=== PATIENT | male | born 1985 | race African-American/Black ===

== ENCOUNTER 2017-12-12 07:22 | Emergency (ER) | payer SELFPAY ==
[~2017-12-12] VITALS: Ht 180.3 cm; Wt 102.0 kg
[2017-12-12] MEDS ORDERED: ALBUTEROL (0.083%) 2.5MG/3ML NEB HHN STA (07:49)
[2017-12-12] MEDS ORDERED: IPRATROPIUM BROMIDE (0.02%) 0.5MG/2.5ML NEB HHN STA (07:49)
[2017-12-12] MEDS ORDERED: PREDNISONE 20MG TABLET PO STA (07:49)
[2017-12-12] MEDS ORDERED: ALBUTEROL (0.5%) 2.5MG/0.5ML NEB HHN ONE (08:05)
[2017-12-12 10:32] VITALS: BP 124/82
== END 2017-12-12 10:34 | disposition home or self-care (01) ==
LOC: ER 08:18
DX: J45.901 Unspecified asthma with (acute) exacerbation (principal); K21.9 Gastro-esophageal reflux disease without esophagitis; F12.10 Cannabis abuse, uncomplicated; Z91.048 Other nonmedicinal substance allergy status
CPT/HCPCS: 71045; 93005; 94644; 99285; J7512; J7611

== ENCOUNTER 2018-05-09 05:29 | Emergency (ER) | payer OTHER ==
[~2018-05-09] VITALS: Ht 180.3 cm; Wt 102.0 kg
[2018-05-09] MEDS ORDERED: KETOROLAC 30MG/ML VIAL IV STA (06:36)
[2018-05-09] MEDS ORDERED: ACETAMINOPHEN 325MG TABLET PO STA (06:36)
[2018-05-09] MEDS ORDERED: SODIUM CHLORIDE 0.9% 1,000 ML IV ONE ×2 (06:45)
[2018-05-09 07:20] LABS: BASOPHILS % 1.6 % (0.0-2.0); EOSINOPHILS % 2.5 % (0.0-5.0); HEMOGLOBIN. 14.1 g/dL (14.0-18.0); LYMPHOCYTES % 41.4 % (20.0-50.0); MEAN CORPUSCULAR HEMOGLOBIN 27.4 pg (28.0-32.0); MEAN CORPUSCULAR VOLUME 81.8 fL (80.0-94.0); MEAN PLATELET VOLUME 8.1 fl (7.4-10.4); MONOCYTES % 13.7 % (2.0-8.0); NEUTROPHILS % 40.8 % (40.0-76.0); PLATELET 252 x1000/uL (130-400); RED BLOOD CELL COUNT 5.14 mill/uL (4.7-6.1); RED CELL DISTRIBUTION WIDTH 14.2 % (11.6-14.6)
[2018-05-09 07:26] LABS: CHLORIDE 108 mEq/L (98-107)
[2018-05-09 07:28] LABS: INR 1.1; PROTHROMBIN TIME 10.7 sec (9.1-11.1)
[2018-05-09] MEDS ORDERED: IPRATROPIUM BROMIDE (0.02%) 0.5MG/2.5ML NEB HHN STA (07:59)
[2018-05-09] MEDS ORDERED: ALBUTEROL (0.083%) 2.5MG/3ML NEB HHN STA (07:59)
[2018-05-09 10:11] VITALS: BP 132/70
== END 2018-05-09 10:17 | disposition home or self-care (01) ==
LOC: ER 05:29 → EDBEDREQTM 06:58 → CANBEDREQ 09:59 → ER 10:17
DX: J06.9 Acute upper respiratory infection, unspecified (principal); J45.901 Unspecified asthma with (acute) exacerbation; R00.1 Bradycardia, unspecified; R74.0 Nonspecific elevation of levels of transaminase and lactic acid dehydrogenase [LDH]; R19.7 Diarrhea, unspecified
CPT/HCPCS: 36415; 71045; 80053; 83605; 84145; 85025; 85610; 87040; 87804; 93005; 94644; 96361; 96374; 99285; J1885; J7030; 94640; J7611

== ENCOUNTER 2020-09-19 05:58 | Emergency (ER) | payer OTHER ==
[~2020-09-19] VITALS: Ht 180.3 cm; Wt 100.0 kg
[2020-09-19] MEDS ORDERED: ACETAMINOPHEN 325MG TABLET PO ONE (06:45)
[2020-09-19 08:21] LABS: CLARITY URINE CLEAR (CLEAR); COLOR URINE YELLOW (YELLOW); KETONES URINE NEGATIVE (NEGATIVE); LEUKOCYTE ESTERASE URINE NEGATIVE (NEGATIVE); NITRITE URINE NEGATIVE (NEGATIVE); OCCULT BLOOD URINE NEGATIVE (NEGATIVE); PH URINE 5.5 (4.5-8.0); PROTEIN URINE NEGATIVE (NEGATIVE); SPECIFIC GRAVITY URINE 1.018 (1.005-1.030); UROBILINOGEN URINE 0.2 E.U./dL (0.2-1.0)
[2020-09-19 10:00] VITALS: BP 120/76
== END 2020-09-19 11:51 | disposition home or self-care (01) ==
LOC: ER 05:58
DX: N50.812 Left testicular pain (principal); K40.90 Unilateral inguinal hernia, without obstruction or gangrene, not specified as recurrent; R03.0 Elevated blood-pressure reading, without diagnosis of hypertension; J45.909 Unspecified asthma, uncomplicated
CPT/HCPCS: 76870; 81003; 93976; 99284